=== PATIENT | female | born 1980 | race Caucasian/White ===

== ENCOUNTER 2018-03-16 13:15 | Emergency (ER) | payer BC ==
[~2018-03-16] VITALS: Ht 160 cm; Wt 53.5 kg
[2018-03-16] MEDS ORDERED: DEXAMETHASONE SOD PHOSPHATE 4 MG/ML VIAL IM ONE (14:00)
[2018-03-16] MEDS ORDERED: KETOROLAC TROMETHAMINE INJ 60 MG/2 ML VIAL IM ONE ×2 (14:00)
[2018-03-16] MEDS ORDERED: DEXAMETHASONE SOD PHOSPHATE 10 MG/ML VIAL ONE (14:00)
[2018-03-16] MEDS ORDERED: DIAZEPAM 10 MG TABLET PO ONE (14:00)
[2018-03-16] MEDS ORDERED: DIAZEPAM 5 MG TABLET ONE (14:01)
[2018-03-16 14:14] LABS: APPEARANCE,URINE Clear (CLEAR); BILIRUBIN,URINE Negative (NEGATIVE); BLOOD, URINE Large Ery/uL (NEGATIVE); COLOR,URINE Yellow (YELLOW); KETONES,URINE Negative (NEGATIVE); LEUKOCYTE ESTERASE ,URINE Negative (NEGATIVE); NITRITE, URINE Negative (NEGATIVE); PH,URINE 5.5 (5.0-8.0); PROTEIN,URINE Trace mg/dl (NEGATIVE); UGLUCOSE 100 MG/DL mg/dL (NEGATIVE); UROBILINOGEN,URINE 0.2 EU/dL (0.2)
--- NOTE | 2018-03-16 14:38 | NUR ---
PT RESTING COMFORTABLY.
--- NOTE | 2018-03-16 14:58 | NUR ---
PT REPORTS PAIN MANAGEMENT ADEQUATE. XR AT BEDSIDE.
[2018-03-16 15:05] LABS: BACTERIA,URINE Many /HPF (None Seen); SQUAMOUS EPITHELIAL CELL,UR Many /HPF (None Seen)
--- NOTE | 2018-03-16 15:42 | NUR ---
SEEN BY MD. CT ORDERED.
--- NOTE | 2018-03-16 16:47 | NUR ---
PT RV BY AND SHANTI FOR D/C. PT INSTRUCTED NOT TO DRIVE. REPORTS ADEQUATE PAIN MANAGEMENT. PROVIDED IMAGING ON DISK. VERBALIZNG UNDERSTANDING, NO FUTHER COMPLAINTS.
[2018-03-16 16:50] VITALS: BP 110/80
== END 2018-03-16 16:51 | disposition home or self-care (01) ==
LOC: ER 13:22
DX: M54.5 Low back pain (principal); F17.200 Nicotine dependence, unspecified, uncomplicated
CPT/HCPCS: 72110-TC; 72131-TC; 81000-TC; 84703-TC; 87086-TC; J1100; J1885